=== PATIENT | male | born 1970 | race Hispanic/Latino ===

== ENCOUNTER 2021-01-09 20:29 | Emergency (ER) | payer OTHER ==
[2021-01-09] MEDS ORDERED: ACETAMINOPHEN WITH CODEINE 1 TAB TAB PO ONE (22:00)
[2021-01-09] MEDS ORDERED: AZIT500T PO (23:28)
[2021-01-09] MEDS ORDERED: ACET-2247 PO (23:28)
[2021-01-09 23:32] VITALS: BP 139/63
== END 2021-01-09 23:43 | disposition home or self-care (01) ==
LOC: EDH 20:29
DX: U07.1 COVID-19 (principal); B34.9 Viral infection, unspecified; Z79.899 Other long term (current) drug therapy
CPT/HCPCS: 71045; 87635; 87804 ×2; 87880; 99284; C9803